=== PATIENT | female | born 1975 | race Caucasian/White ===

== ENCOUNTER → 2017-07-26 | Outpatient (CLI) | payer BC ==
[2005-04-01 13:44] VITALS: TEMP 98
== END ==
LOC: MC.RAD 08:12
DX: Z12.31 Encounter for screening mammogram for malignant neoplasm of breast (principal); N63.11 Unspecified lump in the right breast, upper outer quadrant

== ENCOUNTER → 2017-08-02 | Outpatient (CLI) | payer BC ==
[2005-04-01 13:44] VITALS: TEMP 98
== END ==
LOC: MC.RAD 08:00
DX: D24.1 Benign neoplasm of right breast (principal)

== ENCOUNTER → 2024-02-19 | Outpatient (CLI) | payer BC ==
[2005-04-01 13:44] VITALS: PULSE 91; TEMP 98
== END ==
LOC: MC.RAD 06:03
DX: Z12.31 Encounter for screening mammogram for malignant neoplasm of breast (principal)